=== PATIENT | male | born 1955 | race Caucasian/White ===

== ENCOUNTER 2016-05-19 15:21 | Emergency (ER) | payer BC ==
[~2016-05-19] VITALS: Ht 188 cm; Wt 76.0 kg
[~2016-05-19 15:21] MED LIST: CHEMOTHERAPY PO
[2016-05-19 15:22] VITALS: BP 123/74; PULSE 81; RESP 12; TEMP 98; O2SAT 96
--- NOTE | 2016-05-19 16:00 | PD ---
HPI Chief Complaint: Wound/Suture/Staple Re-Check Time Seen by Provider: 15:58 Travel History International Travel<30 days: No Contact w/Intl Traveler<30days: No Traveled to known affect area: No History of Present Illness HPI Patient is a 60-year-old male who presents to the emergency department to have the aylin removed from his scalp. Patient states they were placed approximately one week ago after he injured himself while working on his sailboat. He denies any other complaints at this time. PFSH Past Medical History Blood Disorders: No Cancer: Yes (RECTAL) Cardiovascular Problems: No Chemotherapy: Yes (PO DAILY FOR RECTAL ) Chest Pain: Yes Diabetes: No Diminished Hearing: No Endocrine: No Gastrointestinal Disorders: Yes (RECURRENT RECTAL CANCER 2009 RADIATION /CHEMO) Genitourinary: No Hepatitis: No Hiatal Hernia: No Immune Disorder: No Implanted Vascular Access Dvce: Yes (REMOVED AFTER TREATMENT) Musculoskeletal: No Neurologic: No Psychiatric: No Reproductive: No Respiratory: No Thyroid Disease: No Past Surgical History Abdominal Surgery: Yes (APPENDECTOMY, ING. HERNIA REP X5, EXC. RECTAL CANCER/ ILEOSTOMY) AICD: No Appendectomy: Yes Body Medical Devices: pt states he is not sure, had previous abd surgery and thinks there is Cardiac Surgery: No Joint Replacement: No Oral Surgery: Yes (TONSILLECTOMY) Pacemaker: No Thoracic Surgery: No Tonsillectomy: Yes Other Surgery: Yes (RECTAL TUMOR REMOVED D/T CA - FOLLOWED BY CHEMO AND RADIATION) Social History Alcohol Use: Yes (OCC) Tobacco Use: No Substance Use: No Allergies-Medications (Allergen,Severity, Reaction): Coded Allergies: No Known Allergies (Verified , 05/19/16) Reported Meds & Prescriptions Reported Meds & Active Scripts Active Reported [Chemotherapy] Unknown Dose PO Q2HR Review of Systems Except as stated in HPI: all other systems reviewed are Neg Physical Exam Narrative GENERAL: Well-nourished, well-developed patient. SKIN: Warm and dry. 2 intact aylin noted to anterior scalp, no erythema, induration, or drainage noted. Wound is well approximated. HEAD: Normocephalic. EYES: No scleral icterus. No injection or drainage. NECK: Supple, trachea midline. No JVD or lymphadenopathy. CARDIOVASCULAR: Regular rate and rhythm without murmurs, gallops, or rubs. RESPIRATORY: Breath sounds equal bilaterally. No accessory muscle use. GASTROINTESTINAL: Abdomen soft, non-tender, nondistended. MUSCULOSKELETAL: No cyanosis, or edema. Data Data Last Documented VS Vital Signs Date Time Temp Pulse Resp B/P Pulse Ox O2 Delivery O2 Flow Rate FiO2 05/19/16 15:22 98.0 81 12 123/74 96 Room Air MDM Medical Decision Making Medical Screen Exam Complete: Yes Emergency Medical Condition: Yes Interpretation(s) Vital Signs Date Time Temp Pulse Resp B/P Pulse Ox O2 Delivery O2 Flow Rate FiO2 05/19/16 15:22 98.0 81 12 123/74 96 Room Air Differential Diagnosis Cellulitis versus abscess versus normal wound healing versus other Narrative Course Patient is a 60-year-old male who presented to emergency department to have aylin removed from his head. He has a laceration repaired one week ago. He has no complaints since that time. He denies any headaches. Patient is neurologically intact. 2 aylin were removed from patient's scalp without difficulty. Patient is stable for discharge Diagnosis Primary Impression: Encounter for staple removal Referrals: Primary Care Physician Patient Instructions: General Instructions Additional Instructions: Follow-up with your primary doctor Return to emergency department for any new or worsening symptoms Med/Other Pt SpecificInfo: No Change to Meds Disposition: 01 DISCHARGE HOME Condition: Stable Jana Reid May 19, 2016 16:00
== END 2016-05-19 16:16 | disposition home or self-care (01) ==
LOC: NEPB 15:21
DX: S01.00XD Unspecified open wound of scalp, subsequent encounter (principal); X58.XXXD Exposure to other specified factors, subsequent encounter; Y92.814 Boat as the place of occurrence of the external cause; Z48.02 Encounter for removal of sutures
CPT/HCPCS: 99281

== ENCOUNTER → 2016-08-17 | Outpatient (CLI) | payer BC ==
[~2016-08-17] MED LIST changes: +HYDR-3516 PO
[2016-08-17 13:24] LABS: AUTOMATED NEUTROPHIL # 2.7 TH/MM3 (1.8-7.7); BASOPHIL % 0.4 % (0.0-2.0); EOSINOPHIL # 0.1 TH/MM3 (0-0.4); EOSINOPHIL % 1.5 % (0.0-4.0); HEMO FLAGS DIFF FINAL; LYMPH % 28.4 % (9.0-44.0); LYMPHOCYTE # 1.2 TH/MM3 (1.0-4.8); MEAN CELL VOLUME 95.6 FL (80.0-100.0); MEAN CORPUSCULAR HEMOGLOBIN 33.2 PG (27.0-34.0); MEAN CORPUSCULAR HGB CONC 34.8 % (32.0-36.0); NEUT % 61.7 % (16.0-70.0); PLATELET COUNT 249 TH/MM3 (150-450); RED BLOOD COUNT 4.19 MIL/MM3 (4.50-5.90); RED CELL DISTRIBUTION WIDTH 13.3 % (11.6-17.2); WHITE BLOOD COUNT 4.4 TH/MM3 (4.0-11.0)
[2016-08-17 13:27] LABS: BLOOD, URINE NEG (NEG); GLUCOSE,URINE NEG (NEG); KETONE, URINE NEG (NEG); MUCUS URINE FEW /lpf (OCC); NITRITE,URINE NEG (NEG); SQUAMOUS EPITHELIAL CELL URINE <1 /hpf (0-5); URINE COLOR YELLOW (YELLW/STRAW)
[2016-08-17 13:28] LABS: COMMENT (UR) CULT NOT INDICATED; CULTURE IF INDICATED CULT NOT INDICATED
--- NOTE | 2016-08-17 13:29 | RADRPT ---
EXAM DATE/TIME: 08/17/2016 12:47 [facility] COMPARISON: No previous studies available for comparison. INDICATIONS : Evaluate for pneumonia, pneumothorax and communicable diseases. Pre-op for exploratory laparotomy. MEDICAL HISTORY : Carcinoma, rectal. SURGICAL HISTORY : Rectal cancer surgery. ENCOUNTER: Initial ACUITY: 1 day PAIN SCORE: 0/10 LOCATION: Bilateral chest FINDINGS: PA and lateral views of the chest demonstrate the lungs to be symmetrically aerated without evidence of mass, infiltrate or effusion. The cardiomediastinal contours are unremarkable. Osseous structure s are intact. CONCLUSION: No acute disease. Arjun Tai MD FACR on August 17, 2016 at 13:28 Board Certified Radiologist. This report was verified electronically.
[2016-08-17 13:36] LABS: APTT (PATIENT) 25.2 SEC (24.3-30.1)
[2016-08-17 13:55] LABS: ALKALINE PHOSPHATASE 58 U/L (45-117); ALT (GPT) 24 U/L (12-78); ANION GAP 8 MEQ/L (5-15); AST (GOT) 12 U/L (15-37); BICARBONATE 30.1 MEQ/L (21.0-32.0); BLOOD UREA NITROGEN 9 MG/DL (7-18); CHLORIDE 105 MEQ/L (98-107); GLOMERULAR FILTRATION RATE 92 ML/MIN (>89); GLUCOSE,FASTING 84 MG/DL (74-99); POTASSIUM 4.1 MEQ/L (3.5-5.1); SODIUM (NA) 143 MEQ/L (136-145); TOTAL BILIRUBIN ADULT 0.4 MG/DL (0.2-1.0)
--- NOTE | 2016-08-18 10:39 | EKG ---
Date Performed: 08/17/2016 Time Performed: 12:12:21 PTAGE: 60 years EKG: Sinus rhythm MARKED LEFT AXIS DEVIATION INCOMPLETE RIGHT BUNDLE BRANCH BLOCK ABNORMAL ECG Compared to prior farida ng no significant change PREVIOUS TRACING : 11/26/2014 09.21 DOCTOR: Franny Lopez Interpretating Date/Time 08/18/2016 10:33:34
== END ==
LOC: CPRE 11:48
PROVIDERS: ATTEND Colon & Rectal Surgery
DX: Z01.810 Encounter for preprocedural cardiovascular examination (principal); Z01.811 Encounter for preprocedural respiratory examination; Z01.812 Encounter for preprocedural laboratory examination; K43.9 Ventral hernia without obstruction or gangrene; I45.19 Other right bundle-branch block
CPT/HCPCS: 36415; 71020; 80053; 81001; 85025; 85610; 85730; 93005

== ENCOUNTER 2016-08-24 11:39 | Inpatient (IN) | payer BC ==
[~2016-08-24] VITALS: Ht 188 cm; Wt 76.4 kg
[2016-08-24] MEDS ORDERED: NEOSTIGMINE 3 MG/3 ML SYR IV ONE (12:00)
[2016-08-24] MEDS ORDERED: LACTATED RINGER'S 1000 ML INJ 1,000 ML IV ONE (12:00)
[2016-08-24] MEDS ORDERED: ONDANSETRON HCL 4 MG/2 ML VIAL IV PUSH ONE (12:00)
[2016-08-24] MEDS ORDERED: PROPOFOL 200 MG/20 ML AMP IV ONE (12:00)
[2016-08-24] MEDS ORDERED: ePHEDrine/NS 25 MG/5 ML SYR IV ONE (12:00)
[2016-08-24] MEDS ORDERED: VECURONIUM BROMIDE 20 MG VIAL IV ONE (12:00)
[2016-08-24] MEDS ORDERED: PHENYLEPH/NS 1000 MCG/10 ML SYR IV ONE (12:00)
[2016-08-24 12:13] VITALS: BP 119/73; PULSE 84; RESP 20; TEMP 98; O2SAT 100
[2016-08-24] MEDS ORDERED: INSULIN HUMAN REGULAR 1,000 UNITS/10 ML VIAL SQ PRN (12:30)
[2016-08-24] MEDS ORDERED: METOPROLOL TARTRATE 25 MG TAB PO PRN (12:30)
[2016-08-24] MEDS ORDERED: CHLORHEXIDINE GLUCONATE 2 % 1 PACK (2 CLOTHS) TOPICAL PRN (12:30)
[2016-08-24] MEDS ORDERED: LACTATED RINGER'S 1000 ML IV PRN (12:30)
[2016-08-24] MEDS ORDERED: DEXT 5%-NACL 0.9% 1000 ML INJ 1,000 ML IV SCH (12:30)
[2016-08-24] MEDS ORDERED: ceFAZolin 1,000 MG/NS 100 ML IV SCH ×2 (12:30)
[2016-08-24] MEDS ORDERED: METRONIDAZOLE 500 MG/100 ML ISONTONIC SOLN IV SCH (12:30)
[2016-08-24] MEDS ORDERED: POVIDONE IODINE 5% (ANTISEPSIS KIT) 4 APPLICATIONS EACH NARE PRN (12:30)
[2016-08-24] MEDS ORDERED: SODIUM CHLORID 0.9% 500 ML IV PRN (12:30)
[2016-08-24] MEDS ORDERED: BUPIVACAINE/EPINEPHRINE 0.5% PF 30 ML VIAL ONE (12:46)
[2016-08-24] MEDS ORDERED: LIDOCAINE 1%/EPINEPHrine 1:100,000 SOLN 50 ML VIAL ONE (12:47)
--- NOTE | 2016-08-24 14:09 | PD.HP.UP ---
H&P Update Note The Pre-Admit History and Physical Examination regarding the above named patient was reviewed (including, but not limited to, vital signs, heart, lungs, co-morbid conditions), and upon re-examination it is noted that: the patient's condition has not significantly changed since the last examination. Alan Luque MD Aug 24, 2016 14:09
[2016-08-24] MEDS ORDERED: DEXAMETHASONE SOD PHOS 4 MG/ML VIAL ONE (14:10)
[2016-08-24] MEDS ORDERED: MIDAZOLAM HCL 2 MG/2 ML VIAL ONE (14:10)
[2016-08-24] MEDS ORDERED: FAMOTIDINE 20 MG/2 ML VIAL ONE (14:10)
[2016-08-24] MEDS ORDERED: fentaNYL CITRATE 250 MCG/5 ML AMP ONE (14:12)
[2016-08-24] MEDS ORDERED: ACETAMINOPHEN 1000 MG/100 ML VIAL IV ONE (14:26)
[2016-08-24] MEDS ORDERED: POTASSIUM CHLOR 40 MEQ PREMIX 100 ML IV PRN (15:30)
[2016-08-24] MEDS ORDERED: ACETAMINOPHEN/HYDROcodone 325 MG/5 MG TAB PO PRN ×2 (15:30)
[2016-08-24] MEDS ORDERED: SODIUM CHLORIDE 0.9% FLUSH 5 ML FLUSH IVF PRN (15:30)
[2016-08-24] MEDS ORDERED: ONDANSETRON HCL 4 MG/2 ML VIAL IV PRN (15:30)
[2016-08-24] MEDS ORDERED: ENALAPRILAT 1.25 MG/ML VIAL IV PRN (15:30)
[2016-08-24] MEDS ORDERED: BENZOCAINE 6 MG/MENTHOL 10 MG LOZENGE BUCCAL PRN (15:30)
[2016-08-24] MEDS ORDERED: Post-op Orders (for Pharmacy) MISC XX ONE (15:30)
[2016-08-24] MEDS ORDERED: MORPHINE SULFATE 30 MG/30 ML PCA IV SCH (15:30)
[2016-08-24] MEDS ORDERED: ACETAMINOPHEN 325 MG TAB PO PRN (15:30)
[2016-08-24] MEDS ORDERED: POTASSIUM CHLOR 20 MEQ PREMIX 100 ML IV PRN (15:30)
[2016-08-24] MEDS ORDERED: NALOXONE HCL 0.4 MG/ML AMP IV PRN (15:30)
[2016-08-24] MEDS ORDERED: ENALAPRILAT 2.5 MG/2 ML VIAL IV PRN (15:30)
--- NOTE | 2016-08-24 15:33 | HHI.PR ---
Immediate Post Op Note Procedure Date: Aug 24, 2016 Pre Op Diagnosis: Ventral hernias Post Op Diagnosis: same Surgeon: Alan Luque Data Communications Engineer(s): Sriram Procedure: Exploratory lap + repair mult ventral hernias/ mesh Findings: multiple ventral hernias, loops of SB stuck to perietal peritoneum Complications: none Specimen(s) removed: none Anesthesia: General Drains: None IVF Patient to: PACU Patient Condition: Good Alan Luque MD Aug 24, 2016 15:33
[2016-08-24] MEDS ORDERED: *morphine SULFATE 8 MG/ML PERIprocedure ONLY ONE (15:45)
[2016-08-24] MEDS: D5-NS + KCL 20 MEQ INJ 1,000 ML IV SCH ×2 (15:57→21:00)
[2016-08-24] MEDS: KETOROLAC TROMETHAMINE 30 MG/ML (IVP) VIAL IVP PRN (16:01)
[2016-08-24 16:45] VITALS: BP 111/67; PULSE 74; RESP 19; TEMP 96.7; O2SAT 98
[2016-08-24 17:58] VITALS: O2SAT 98
[2016-08-24 20:00] VITALS: BP 102/61; PULSE 63; RESP 18; TEMP 96.9; O2SAT 97
[2016-08-24] MEDS: SODIUM CHLORIDE 0.9% FLUSH 5 ML FLUSH IVF SCH (21:00)
[2016-08-24] MEDS: METOCLOPRAMIDE HCL 10 MG/2 ML VIAL IVS SCH (21:00)
[2016-08-24] MEDS: PCA - TOTAL MG MORPHINE DELIVERED PER SHIFT SCH (21:26)
[2016-08-25] VITALS (7 sets, daily range): BP systolic 99–108; BP diastolic 59–68; PULSE 50–82; RESP 17–18; TEMP 96.3–97.3; O2SAT 96–100
[2016-08-25] MEDS: KETOROLAC TROMETHAMINE 30 MG/ML (IVP) VIAL IVP PRN ×2 (00:07→08:22)
[2016-08-25] MEDS: metroNIDAZOLE 500 MG INJ 100 ML IV SCH ×3 (00:47→14:21)
[2016-08-25] MEDS: D5-NS + KCL 20 MEQ INJ 1,000 ML IV SCH ×2 (05:28→16:27)
[2016-08-25] MEDS: PCA - TOTAL MG MORPHINE DELIVERED PER SHIFT SCH ×2 (05:36→14:00)
[2016-08-25 05:40] LABS: AUTOMATED NEUTROPHIL # 7.9 TH/MM3 (1.8-7.7); BASOPHIL % 0.3 % (0.0-2.0); EOSINOPHIL % 0.1 % (0.0-4.0); HEMATOCRIT 38.4 % (39.0-51.0); HEMO FLAGS DIFF FINAL; LYMPH % 8.2 % (9.0-44.0); LYMPHOCYTE # 0.8 TH/MM3 (1.0-4.8); MEAN CELL VOLUME 96.8 FL (80.0-100.0); MEAN CORPUSCULAR HEMOGLOBIN 32.4 PG (27.0-34.0); MEAN CORPUSCULAR HGB CONC 33.4 % (32.0-36.0); MONO % 8.9 % (0.0-8.0); NEUT % 82.5 % (16.0-70.0); PLATELET COUNT 205 TH/MM3 (150-450); RED BLOOD COUNT 3.97 MIL/MM3 (4.50-5.90); WHITE BLOOD COUNT 9.6 TH/MM3 (4.0-11.0)
[2016-08-25 06:06] LABS: BICARBONATE 28.3 MEQ/L (21.0-32.0); POTASSIUM 4.5 MEQ/L (3.5-5.1)
[2016-08-25] MEDS: SODIUM CHLORIDE 0.9% FLUSH 5 ML FLUSH IVF SCH (08:23)
[2016-08-25] MEDS: METOCLOPRAMIDE HCL 10 MG/2 ML VIAL IVS SCH (08:23)
[2016-08-25] MEDS ORDERED: PANTOPRAZOLE SOD 40 MG DELAYED RELEASE TAB PO SCH (09:00)
[2016-08-25] MEDS ORDERED: ALVIMOPAN 12 MG CAPSULE PO SCH (09:00)
[2016-08-25] MEDS ORDERED: PANTOPRAZOLE SODIUM 40 MG VIAL IVP SCH (09:00)
--- NOTE | 2016-08-25 18:20 | HHI.PR ---
Subjective Remarks C/R Surg POD #1 afebrile, VSS UO good Objective - Vital Signs Date Time Temp Pulse Resp B/P Pulse Ox O2 Delivery O2 Flow Rate FiO2 08/25/16 16:00 96.6 82 17 108/65 97 08/25/16 10:25 21 08/25/16 01:53 Nasal Cannula 2.00 Result Diagram: 08/25/16 0500 08/25/16 0500 Objective Remarks PE alert Abd - soft, wound dry A/P Assessment and Plan Imp: stable post-op OOB decr IVF long carver dc plans Alan Luque MD Aug 25, 2016 18:20
[2016-08-25] MEDS ORDERED: HYDR-3516 PO (18:23)
--- NOTE | 2016-08-26 07:24 | MP ---
cc: TYLER LIM M.D. DATE OF SURGERY August 24, 2016 PREOPERATIVE DIAGNOSES 1. Multiple ventral hernias. 2. History of rectal cancers. PROCEDURE Exploratory laparotomy with repair of multiple ventral hernias with insertion of mesh. POSTOPERATIVE DIAGNOSES 1. Multiple ventral hernias. 2. History of rectal cancers. SURGEON Dr. Lim DONOR RECRUITER Dr. Tatiana Bhatia PROCEDURE The patient was placed in the supine position. After adequate general anesthesia, her abdomen was prepped with Betadine solution and draped in the usual sterile fashion. With Dr. Bhatia' assistance, previous midline incision was opened entering a hernia sac around the umbilicus in the cephalad portion of the wound. The hernia sacs were connected and the abdomen opened. Adhesions to the parietal peritoneum were taken down. Exploration of the abdomen revealed quite a few adhesions in the pelvis but no sign of any recurrent tumor. Several of these adhesions were very densely adherent to the abdominal wall. These were taken down with both sharp and blunt dissection. After full mobilization, the fascial defect was identified. Very little attenuated fascia was present except around the umbilicus. Flaps were raised on both sides of the hernia sac which revealed rather good musculature on both sides. After obtaining adequate tissue, the hernia defect was closed using a running #1 PDS suture to reapproximate the midline fascia, placing a piece of double-sided hernia mesh around the umbilicus and suturing it into the repair as the defect was closed. The subcutaneous tissues were then irrigated copiously with normal saline. Adequate hemostasis was achieved. The subcu tissues were then closed obliterating some of the space with deep Vicryl sutures and the skin closed with a running subcuticular Vicryl suture. The wound area was washed with normal saline and dried, sterile dressing of Telfa and gauze applied. The patient tolerated the procedure quite well and was brought to the recovery room in stable condition. Sponge and needle counts were correct at the end of the procedure. MD RONN oHrton/RADHIKA /10:41 PM /7:17 AM
== END 2016-08-25 19:21 | disposition home or self-care (01) | DRG 355 ==
LOC: HSDC 11:39 → HSDI 15:29 → N07A 16:45
PROVIDERS: ADMIT Colon & Rectal Surgery; ATTEND Colon & Rectal Surgery
PROC: 0WUF0JZ Supplement Abdominal Wall with Synthetic Substitute, Open Approach (ICD-10-PCS; principal; 2016-08-24 14:16)
DX: K43.9 Ventral hernia without obstruction or gangrene (principal); K66.0 Peritoneal adhesions (postprocedural) (postinfection); Z85.048 Personal history of other malignant neoplasm of rectum, rectosigmoid junction, and anus
CPT/HCPCS: 80048; 85025; 86850; 86900; 86901; 94150; C1781; J0131; J0690; J1100; J1885; J2250; J2270; J2370; J2405; J2710; J2765; J3010; J3480; J7120